=== PATIENT | female | born 1955 | race Caucasian/White ===

== ENCOUNTER 2017-04-29 18:02 | Observation (INO) | payer OTHER ==
[~2017-04-29] VITALS: Ht 162.6 cm; Wt 99.8 kg
[2017-04-29] VITALS (7 sets, daily range): BP systolic 120–183; BP diastolic 68–93; PULSE 78–199; RESP 18–20; TEMP 97.4–98.7; O2SAT 96–98
[2017-04-29] MEDS ORDERED: SODIUM CHLORIDE 0.9% FLUSH 10 ML FLUSH IVF PRN (18:15)
[2017-04-29] MEDS ORDERED: DILTIAZEM HCL 25 MG/5 ML VIAL IV ONE (18:15)
[2017-04-29] MEDS ORDERED: ASPIRIN 325 MG TAB PO ONE (18:15)
--- NOTE | 2017-04-29 18:15 | PD ---
HPI Chief Complaint: Cardiac Complaint Time Seen by Provider: 18:06 Travel History International Travel<30 days: No Contact w/Intl Traveler<30days: No Traveled to known affect area: No History of Present Illness HPI The patient was seen and examined in the presence of the nurse. This patient arrives critically ill with heart rate of 200. She developed a low central chest pressure and rapid heartbeat one hour ago. She called paramedics who found her in SVT and gave her 6 of adenosine followed by 12 mg of adenosine. Neither worked for converting. She arrives in SVT at 200. Systolic blood pressure 120. She is alert and talking. She has no history of cardiac arrhythmia or cardiac disease per her report. Symptoms are severe. He feels lightheaded and dizzy. No alleviating factors. No exacerbating factors. PFSH Social History Alcohol Use: No Tobacco Use: No Substance Use: No Allergies-Medications (Allergen,Severity, Reaction): Coded Allergies: codeine (Verified Allergy, Severe, Itching, 04/29/17) morphine (Verified Allergy, Severe, Itching, 04/29/17) Reported Meds & Prescriptions Reported Meds & Active Scripts Active Reported Ambien (Zolpidem Tartrate) 10 Mg Tab 10 Mg PO HS PRN Fentanyl Patch 72 HR (Fentanyl) 75 Mcg/Hr Patch 75 Mcg T-DERMAL Q72H Remove old patch when new one placed. Fetzima ER (Levomilnacipran ER) 120 Mg Caper 120 Mg PO DAILY Lovastatin 40 Mg Tab 40 Mg PO DAILY Clonazepam 1 Mg Tab 1 Mg PO DAILY Levothyroxine (Levothyroxine Sodium) 50 Mcg Tab 50 Mcg PO DAILY Lamotrigine 100 Mg Tab 100 Mg PO DAILY Lamotrigine 100 Mg Tab 100 Mg PO DAILY Linzess (Linaclotide) 145 Mcg Cap 145 Mcg PO DAILY Verapamil (Verapamil HCl) 120 Mg Tab 240 Mg PO DAILY Ranitidine (Ranitidine HCl) 150 Mg Tab 150 Mg PO DAILY Review of Systems General / Constitutional: No: Fever Eyes: No: Visual changes HENT: Positive: Lightheadedness, No: Headaches Cardiovascular: Positive: Chest Pain or Discomfort, Palpitations, Tachycardia Respiratory: No: Shortness of Breath Gastrointestinal: No: Abdominal Pain Genitourinary: No: Dysuria Musculoskeletal: No: Pain Skin: No Rash Neurologic: Positive: Weakness, Dizziness Psychiatric: No: Depression Endocrine: No: Polydipsia Hematologic/Lymphatic: No: Easy Bruising Physical Exam Narrative GENERAL: Well-nourished, well-developed patient with chest pressure and lightheadedness and rapid heartbeat . SKIN: Focused skin assessment reveals no rash and nodules. Skin is Warm and dry. HEAD: Atraumatic. Normocephalic. EYES: Pupils equal and round. No scleral icterus. No injection or drainage. ENT: No nasal bleeding or discharge. Mucous membranes pink and moist. NECK: Trachea midline. No JVD. CARDIOVASCULAR: Regular rate and rhythm. No murmur appreciated. Heart rate is 200 RESPIRATORY: No accessory muscle use. Clear to auscultation. Breath sounds equal bilaterally. GASTROINTESTINAL: Abdomen soft, non-tender, nondistended. Hepatic and splenic margins not palpable. MUSCULOSKELETAL: No obvious deformities. No clubbing. No cyanosis. No edema. NEUROLOGICAL: Awake and alert. No obvious cranial nerve deficits. Motor grossly within normal limits. Normal speech. PSYCHIATRIC: Anxious mood and affect; insight and judgment normal. Data Data Last Documented VS Vital Signs Date Time Temp Pulse Resp B/P (MAP) Pulse Ox O2 Delivery O2 Flow Rate FiO2 04/29/17 18:47 Room Air 04/29/17 18:47 20 96 2.00 04/29/17 18:40 98.7 199 120/68 (85) Orders Orders Diltiazem Inj (Cardizem Inj) (04/29/17 18:15) Electrocardiogram (04/29/17 18:06) Basic Metabolic Panel (Bmp) (04/29/17 18:06) Ckmb (Isoenzyme) Profile (04/29/17 18:06) Complete Blood Count With Diff (04/29/17 18:06) Magnesium (Mg) (04/29/17 18:06) Prothrombin Time / Inr (Pt) (04/29/17 18:06) Act Partial Throm Time (Ptt) (04/29/17 18:06) Troponin I (04/29/17 18:06) Chest, Single Ap (04/29/17 18:06) Ecg Monitoring (04/29/17 18:06) Iv Access Insert/Monitor (04/29/17 18:06) Oximetry (04/29/17 18:06) Oxygen Administration (04/29/17 18:06) Sodium Chloride 0.9% Flush (Ns Flush) (04/29/17 18:15) Aspirin (Aspirin) (04/29/17 18:15) Admit Order (Ed Use Only) (04/29/17 19:22) Labs Laboratory Tests Test 04/29/17 18:00 White Blood Count 10.6 TH/MM3 Red Blood Count 4.67 MIL/MM3 Hemoglobin 13.3 GM/DL Hematocrit 41.0 % Mean Corpuscular Volume 87.8 FL Mean Corpuscular Hemoglobin 28.5 PG Mean Corpuscular Hemoglobin Concent 32.4 % Red Cell Distribution Width 12.3 % Platelet Count 425 TH/MM3 Mean Platelet Volume 8.0 FL Neutrophils (%) (Auto) 58.3 % Lymphocytes (%) (Auto) 32.0 % Monocytes (%) (Auto) 6.6 % Eosinophils (%) (Auto) 1.7 % Basophils (%) (Auto) 1.4 % Neutrophils # (Auto) 6.2 TH/MM3 Lymphocytes # (Auto) 3.4 TH/MM3 Monocytes # (Auto) 0.7 TH/MM3 Eosinophils # (Auto) 0.2 TH/MM3 Basophils # (Auto) 0.1 TH/MM3 CBC Comment DIFF FINAL Differential Comment Prothrombin Time 10.0 SEC Prothromb Time International Ratio 1.0 RATIO Activated Partial Thromboplast Time 27.5 SEC Blood Urea Nitrogen 16 MG/DL Creatinine 0.91 MG/DL Random Glucose 136 MG/DL Calcium Level 9.3 MG/DL Magnesium Level 2.0 MG/DL Sodium Level 137 MEQ/L Potassium Level 4.0 MEQ/L Chloride Level 101 MEQ/L Carbon Dioxide Level 29.2 MEQ/L Anion Gap 7 MEQ/L Estimat Glomerular Filtration Rate 63 ML/MIN Total Creatine Kinase 92 U/L Troponin I 0.02 NG/ML MDM Medical Decision Making Medical Screen Exam Complete: Yes Emergency Medical Condition: Yes Medical Record Reviewed: Yes Differential Diagnosis SVT, A. fib with RVR, ventricular tachycardia Narrative Course I have reviewed the patient's electronic medical record. This patient arrives critically ill. She has failed adenosine twice I placed on cardiac monitoring and reviewed her EKG which shows SVT at 200. She has a narrow complex regular tachycardia She is symptomatic but rather than jumping right to synchronized cardioversion I gave her 20 g IV Cardizem bolus Extended cardiac monitoring revealed SVT which was very rapid Within she converted to a sinus rhythm at 90 after Cardizem I reviewed his second EKG which shows sinus rhythm at [address] elevation or ectopy IV placed I reviewed the chest x-ray which is normal Extended cardiac monitoring at this time shows 90 sinus rhythm CBC is normal Metabolic profile is normal CK is normal Troponin is normal Coagulation studies are normal Multiple bedside checks were done. At this Moment she is currently chest pain-free and in a sinus rhythm. I reviewed with the hospitalist who will admit to telemetry Critical Care Narrative Aggregate critical care time was 38 minutes. Time to perform other separately billable procedures was not included in the critical care time. My time did not include minutes spent treating any other patients simultaneously or on activities that did not directly contribute to the patient's treatment. The services I provided to this patient were to treat and/or prevent clinically significant deterioration that could result in: Cardiopulmonary arrest, cardiogenic shock, myocardial injury I provided critical care services requiring my management, as noted below: Chart data review, documentation time, medication orders and management, vital sign assessments/reviewing monitor data, ordering and reviewing lab tests, ordering and interpreting/reviewing x-rays and diagnostic studies, care of the patient and discussion of the patient with the admitting physicians. Diagnosis Primary Impression: Chest pain Qualified Codes: R07.2 - Precordial pain Additional Impression: SVT (supraventricular tachycardia) Admitting Information Admitting Physician Requests: Siva Oreilly MD Apr 29, 2017 18:15
--- NOTE | 2017-04-29 18:24 | RADRPT ---
EXAM DATE/TIME: 04/29/2017 18:13 [facility] COMPARISON: No previous studies available for comparison. INDICATIONS : Irregular heart rate starting today MEDICAL HISTORY : None. SURGICAL HISTORY : None. ENCOUNTER: Initial ACUITY: 1 day PAIN SCORE: 0/10 LOCATION: Bilateral chest FINDINGS: A single view of the chest demonstrates the lungs to be symmetrically aerated without evidence of mas s, infiltrate or effusion. The cardiomediastinal contours are unremarkable. Osseous structures are intact. CONCLUSION: No acute disease. Hank Hunter MD on April 29, 2017 at 18:22 Board Certified Radiologist. This report was verified electronically.
[2017-04-29 18:30] LABS: AUTOMATED NEUTROPHIL # 6.2 TH/MM3 (1.8-7.7); BASOPHIL # 0.1 TH/MM3 (0-0.2); BASOPHIL % 1.4 % (0.0-2.0); EOSINOPHIL # 0.2 TH/MM3 (0-0.4); EOSINOPHIL % 1.7 % (0.0-4.0); HEMOGLOBIN 13.3 GM/DL (11.6-15.3); LYMPHOCYTE # 3.4 TH/MM3 (1.0-4.8); MEAN CELL VOLUME 87.8 FL (80.0-100.0); MEAN CORPUSCULAR HEMOGLOBIN 28.5 PG (27.0-34.0); MEAN CORPUSCULAR HGB CONC 32.4 % (32.0-36.0); MONO % 6.6 % (0.0-8.0); MONOCYTE # 0.7 TH/MM3 (0-0.9); NEUT % 58.3 % (16.0-70.0); PLATELET COUNT 425 TH/MM3 (150-450); RED BLOOD COUNT 4.67 MIL/MM3 (4.00-5.30); RED CELL DISTRIBUTION WIDTH 12.3 % (11.6-17.2); WHITE BLOOD COUNT 10.6 TH/MM3 (4.0-11.0)
[2017-04-29 18:41] LABS: CALCIUM 9.3 MG/DL (8.5-10.1)
[2017-04-29 18:42] LABS: BICARBONATE 29.2 MEQ/L (21.0-32.0)
[2017-04-29 18:45] LABS: CREATININE 0.91 MG/DL (0.50-1.00)
[2017-04-29 18:50] LABS: TROPONIN I 0.02 NG/ML (0.02-0.05)
[2017-04-29] MEDS ORDERED: VERA120T3 PO (19:01)
[2017-04-29] MEDS ORDERED: LAMO100T PO ×2 (19:01)
[2017-04-29] MEDS ORDERED: LINA145C PO (19:01)
[2017-04-29] MEDS ORDERED: CLON1TAB PO (19:01)
[2017-04-29] MEDS ORDERED: LEVO1CAP PO (19:01)
[2017-04-29] MEDS ORDERED: FENT75DI T-DERMAL (19:01)
[2017-04-29] MEDS ORDERED: LEVO50TA4 PO (19:01)
[2017-04-29] MEDS ORDERED: LOVA40TA PO (19:01)
[2017-04-29] MEDS ORDERED: RANI150T PO (19:01)
[2017-04-29] MEDS ORDERED: AMBI10TA PO (19:24)
[2017-04-29] MEDS ORDERED: SODIUM CHLORIDE 0.9% FLUSH 10 ML FLUSH IV FLUSH PRN (19:30)
[2017-04-29] MEDS ORDERED: NITROGLYCERIN 0.4 MG SL 25 TABS/BTL SL PRN (19:30)
[2017-04-29] MEDS: HEPARIN SODIUM - SQ 10,000 UNITS/ML VIAL SQ SCH (22:26)
[2017-04-29] MEDS: SODIUM CHLORIDE 0.9% FLUSH 10 ML FLUSH IV FLUSH SCH (22:26)
[2017-04-29] MEDS ORDERED: VERAPAMIL HCL 240 MG SUSTAINED RELEASE TAB PO ONE (23:15)
[2017-04-29] MEDS ORDERED: lamoTRIgine 100 MG TAB PO ONE (23:15)
[2017-04-29] MEDS: ZOLPIDEM TARTRATE 10 MG TAB PO PRN (23:31)
[2017-04-29] MEDS ORDERED: HYDR-3583 PO (23:35)
[2017-04-30] VITALS (8 sets, daily range): BP systolic 132–184; BP diastolic 74–88; PULSE 69–89; RESP 18–20; TEMP 96.5–98; O2SAT 92–97
[2017-04-30 00:48] LABS: TROPONIN I 0.21 NG/ML (0.02-0.05)
[2017-04-30] MEDS: HEPARIN SODIUM - SQ 10,000 UNITS/ML VIAL SQ SCH ×3 (05:54→22:08)
[2017-04-30] MEDS: LEVOTHYROXINE SODIUM 50 MCG TAB PO SCH (05:54)
[2017-04-30 07:02] LABS: AUTOMATED NEUTROPHIL # 4.1 TH/MM3 (1.8-7.7); BASOPHIL # 0.1 TH/MM3 (0-0.2); BASOPHIL % 1.4 % (0.0-2.0); EOSINOPHIL # 0.1 TH/MM3 (0-0.4); EOSINOPHIL % 1.9 % (0.0-4.0); HEMATOCRIT 41.5 % (35.0-46.0); HEMOGLOBIN 13.8 GM/DL (11.6-15.3); LYMPHOCYTE # 2.8 TH/MM3 (1.0-4.8); MEAN CELL VOLUME 86.7 FL (80.0-100.0); MEAN CORPUSCULAR HEMOGLOBIN 28.7 PG (27.0-34.0); MEAN CORPUSCULAR HGB CONC 33.1 % (32.0-36.0); MONO % 6.7 % (0.0-8.0); MONOCYTE # 0.5 TH/MM3 (0-0.9); PLATELET COUNT 342 TH/MM3 (150-450); RED BLOOD COUNT 4.79 MIL/MM3 (4.00-5.30); RED CELL DISTRIBUTION WIDTH 12.6 % (11.6-17.2); WHITE BLOOD COUNT 7.6 TH/MM3 (4.0-11.0)
[2017-04-30 07:29] LABS: BICARBONATE 27.6 MEQ/L (21.0-32.0)
[2017-04-30 07:33] LABS: CREATININE 0.71 MG/DL (0.50-1.00)
[2017-04-30 07:37] LABS: TROPONIN I 0.25 NG/ML (0.02-0.05)
[2017-04-30] MEDS ORDERED: VERAPAMIL HCL 120 MG TAB PO SCH (09:00)
[2017-04-30] MEDS ORDERED: LINACLOTIDE 145 MCG PO SCH (09:00)
[2017-04-30] MEDS ORDERED: PNEUMOCOCCAL POLYVALENT INJ 25 MCG/0.5 ML SYR IM ONE (09:00)
--- NOTE | 2017-04-30 09:51 | HHI.HP ---
[facility] Primary Care Physician Mitchell Rendon MD Admission Diagnosis Chest pain, SVT Diagnoses: (1) Chest pain Diagnosis: Principal (2) SVT (supraventricular tachycardia) Diagnosis: Principal Chief Complaint: Chest pain and palpitations Travel History International Travel<30 Days: No Contact w/Intl Traveler <30 Da: No Traveled to Known Affected Are: No History of Present Illness This is a pleasant 61-year-old female patient with a known medical history of chronic back pain presented to the ED with complaints of racing heart rate and chest pain. Patient states that she had a relatively active day yesterday, states that after her busy day she was resting at home and developed a chest pressor and rapid heart rate. She then called the paramedics who found her in SVT, was given one dose of adenosine followed by a another dose. There is reports that patient did not convert therefore was brought into the ED. Patient was given another dose of adenosine when which her heart rate had stabilized. She does admit to associated lightheadedness of dizziness. Patient does admit that on Thursday she was feeling weak and shaky and overall "not herself"and had rested for a couple days. She denies any recent fever or chills or abdominal pain, nausea or vomiting or diarrhea. Patient states that she saw Dr. Corona roughly one year ago and underwent a stress test and echocardiogram was done which was all reportedly negative. Patient's PCP is Dr. Rendon. Patient states that she has these racing heartbeat sensations quite frequently and they occur most the time when she is bearing down using the bathroom. Patient is on pain medications for chronic back pain for which she subsequently has complaints of chronic constipation. Patient states her last bowel movement was on Thursday. Denies any hematochezia. Patient states that she did follow with the teaching specialists, and does not remember his name , last year which had recommended an upper EGD that patient states she is unable to do to monetary reasons. Patient does state she underwent a colonoscopy over ten years ago which was reportedly negative. She takes MiraLAX at home for constipation. Currently follows with the pain management doctor. Review of Systems Constitutional: COMPLAINS OF: Fatigue, DENIES: Fever, Chills Eyes: DENIES: Blurred vision, Diplopia Respiratory: DENIES: Cough, Shortness of breath Cardiovascular: COMPLAINS OF: Chest pain, Palpitations Gastrointestinal: COMPLAINS OF: Abdominal pain, Constipation, DENIES: Black stools, Bloody stools, Diarrhea, Nausea, Vomiting Musculoskeletal: DENIES: Joint pain Integumentary: DENIES: Abnormal pigmentation Hematologic/lymphatic: DENIES: Bruising Immunologic/allergic: DENIES: Eczema Neurologic: DENIES: Abnormal gait Psychiatric: DENIES: Anxiety Except as stated in HPI: all other systems reviewed are Neg Past Family Social History Past Medical History Chronic back pain on narcotics with frequent constipation. Past Surgical History Denies any previous surgeries. Reported Medications Active Reported Hydrocodone-Acetaminophen 10-325 mg Tab 1 Tab PO Q8HR PRN Ambien (Zolpidem Tartrate) 10 Mg Tab 10 Mg PO HS PRN Fentanyl Patch 72 HR (Fentanyl) 75 Mcg/Hr Patch 75 Mcg T-DERMAL Q72H Remove old patch when new one placed. Fetzima ER (Levomilnacipran ER) 120 Mg Caper 120 Mg PO DAILY Lovastatin 40 Mg Tab 40 Mg PO DAILY Clonazepam 1 Mg Tab 1 Mg PO DAILY Levothyroxine (Levothyroxine Sodium) 50 Mcg Tab 50 Mcg PO DAILY Lamotrigine 100 Mg Tab 200 Mg PO DAILY Lamotrigine 100 Mg Tab 100 Mg PO DAILY Linzess (Linaclotide) 145 Mcg Cap 145 Mcg PO DAILY Verapamil (Verapamil HCl) 120 Mg Tab 240 Mg PO DAILY Ranitidine (Ranitidine HCl) 150 Mg Tab 150 Mg PO DAILY Allergies: Coded Allergies: codeine (Verified Allergy, Severe, Itching, 04/29/17) morphine (Verified Allergy, Severe, Itching, 04/29/17) Active Ordered Medications Current Medications Medications (Trade) Dose Ordered Sig/Larry Route Start Time Stop Time Status Last Admin (NS Flush) 2 ml BID IV FLUSH 04/29/17 21:00 04/30/17 10:17 (NS Flush) 2 ml UNSCH PRN IV FLUSH 04/29/17 19:30 (Aspirin) 325 mg DAILY PO 04/30/17 09:00 04/30/17 10:15 (Nitrostat Sl) 0.4 mg Q5M PRN SL 04/29/17 19:30 (Heparin Inj) 5,000 units Q8H SQ 04/29/17 21:00 04/30/17 11:58 (KlonoPIN) 1 mg DAILY PO 04/30/17 09:00 04/30/17 10:14 (LaMICtal) 200 mg DAILY PO 04/30/17 09:00 04/30/17 10:15 (Synthroid) 50 mcg DAILY@0600 PO 04/30/17 06:00 04/30/17 05:54 (Pravachol) 40 mg DAILY PO 04/30/17 09:00 04/30/17 10:15 (Ambien) 10 mg HS PRN PO 04/29/17 23:00 04/29/17 23:31 Patient Own Medication PT OWN MED: LINACLOTIDE 145 MCG ... DAILY PO 04/30/17 09:00 Future Hold (Pepcid) 20 mg DAILY PO 04/30/17 09:00 04/30/17 10:15 (Isoptin Sr) 240 mg DAILY PO 04/30/17 09:00 04/30/17 10:15 (Arabella-Colace) 1 tab BID PO 04/30/17 10:00 04/30/17 10:19 (Milk Of Magnesia Liq) 30 ml Q12H PRN PO 04/30/17 10:00 (Senokot) 17.2 mg Q12H PRN PO 04/30/17 10:00 (Dulcolax Supp) 10 mg DAILY PRN RECTAL 04/30/17 10:00 (Lactulose Liq) 30 ml DAILY PRN PO 04/30/17 10:00 (Relistor Inj) 12 mg DAILY SQ 04/30/17 12:00 04/30/17 11:58 Patient Own Medication PT OWN MED: FETZIMA... DAILY PO 04/30/17 14:00 Family History Paternal medical history significant for diabetes, or vascular disease with history of CABG, UT and CHF. Social History Patient does state she smokes roughly a pack of cigarettes per week for the last forty-five years. Denies any alcohol use or illicit use. Physical Exam Vital Signs Vital Signs Date Time Temp Pulse Resp B/P (MAP) Pulse Ox O2 Delivery O2 Flow Rate FiO2 04/30/17 07:50 97.6 69 20 138/74 (95) 95 04/30/17 04:00 97.5 74 18 175/88 (117) 95 04/30/17 00:00 97.1 82 20 184/86 (118) 96 04/29/17 22:15 04/29/17 21:57 78 04/29/17 21:45 97.4 88 20 183/93 (123) 96 04/29/17 21:08 91 18 140/75 (96) 98 Room Air 04/29/17 19:35 107 18 140/75 (96) 97 Room Air 04/29/17 18:47 Room Air 04/29/17 18:47 20 96 Nasal Cannula 2.00 04/29/17 18:47 96 Nasal Cannula 2.00 04/29/17 18:40 98.7 199 20 120/68 (85) 96 04/29/17 18:02 98.7 199 18 120/68 (85) 96 Physical Exam GENERAL: Well-nourished, well-developed patient in NAD. SKIN: Warm and dry. No rash. HEAD: Normocephalic. Atraumatic. EYES: Pupils equal and round. No scleral icterus. No injection or drainage. ENT: No nasal bleeding or discharge. Mucous membranes pink and moist. NECK: Supple. Trachea midline. CARDIOVASCULAR: Regular rate and rhythm. S1, S2 noted. No murmur appreciated. No reproducible chest pain to palpation. RESPIRATORY: No accessory muscle use. Clear to auscultation. Breath sounds equal bilaterally. GASTROINTESTINAL: Abdomen soft, mildly distended, mildly tender to palpation. Normoactive bowel sounds x4. MUSCULOSKELETAL: No obvious deformities. Extremities without clubbing, cyanosis , or edema. NEUROLOGICAL: Awake and alert. No obvious cranial nerve deficits. Motor grossly within normal limits. 5/5 muscle strength in bilateral upper and lower extremities. Normal speech. PSYCHIATRIC: Appropriate mood and affect; insight and judgment normal. Laboratory Laboratory Tests Test 04/29/17 18:00 04/30/17 00:15 04/30/17 05:05 White Blood Count 10.6 7.6 Red Blood Count 4.67 4.79 Hemoglobin 13.3 13.8 Hematocrit 41.0 41.5 Mean Corpuscular Volume 87.8 86.7 Mean Corpuscular Hemoglobin 28.5 28.7 Mean Corpuscular Hemoglobin Concent 32.4 33.1 Red Cell Distribution Width 12.3 12.6 Platelet Count 425 342 Mean Platelet Volume 8.0 8.0 Neutrophils (%) (Auto) 58.3 53.0 Lymphocytes (%) (Auto) 32.0 37.0 Monocytes (%) (Auto) 6.6 6.7 Eosinophils (%) (Auto) 1.7 1.9 Basophils (%) (Auto) 1.4 1.4 Neutrophils # (Auto) 6.2 4.1 Lymphocytes # (Auto) 3.4 2.8 Monocytes # (Auto) 0.7 0.5 Eosinophils # (Auto) 0.2 0.1 Basophils # (Auto) 0.1 0.1 CBC Comment DIFF FINAL DIFF FINAL Differential Comment Prothrombin Time 10.0 Prothromb Time International Ratio 1.0 Activated Partial Thromboplast Time 27.5 Blood Urea Nitrogen 16 12 Creatinine 0.91 0.71 Random Glucose 136 93 Calcium Level 9.3 10.0 Magnesium Level 2.0 Sodium Level 137 138 Potassium Level 4.0 3.8 Chloride Level 101 100 Carbon Dioxide Level 29.2 27.6 Anion Gap 7 10 Estimat Glomerular Filtration Rate 63 84 Total Creatine Kinase 92 77 76 Troponin I 0.02 0.21 0.25 Result Diagram: 04/30/17 0505 04/30/17 0505 Imaging Last Impressions Chest X-Ray 04/29/17 1806 Signed Impressions: Service Date/Time: Saturday, April 29, 2017 18:13 - CONCLUSION: No acute disease. Hank Hunter MD Septic Shock Reassessment Septic shock perfusion: reassessment completed Caprini VTE Risk Assessment Caprini VTE Risk Assessment: Mod/High Risk (score >= 2) Caprini Risk Assessment Model Point Value = 1 Point Value = 2 Point Value = 3 Point Value = 5 Age 41-60 Minor surgery BMI > 25 kg/m2 Swollen legs Varicose veins or History of unexplained or recurrent spontaneous Oral contraceptives or hormone replacement Sepsis (< 1 month) Serious lung disease, including pneumonia (< 1 month) Abnormal pulmonary function Acute myocardial infarction Congestive heart failure (< 1 month) History of inflammatory bowel disease Medical patient at bed rest Age 61-74 Arthroscopic surgery Major open surgery (> 45 min) Laparoscopic surgery (> 45 min) Malignancy Confined to bed (> 72 hours) Immobilizing plaster cast Central venous access Age >= 75 History of VTE Family history of VTE Factor V Leiden Prothrombin [id number] Lupus anticoagulant Anticardiolipin antibodies Elevated serum homocysteine Heparin-induced thrombocytopenia Other congenital or acquired thrombophilia Stroke (< 1 month) Elective arthroplasty Hip, pelvis, or leg fracture Acute spinal cord injury (< 1 month) Prophylaxis Regimen Total Risk Factor Score Risk Level Prophylaxis Regimen 0-1 Low Early ambulation 2 Moderate Order ONE of the following: *Sequential Compression Device (SCD) *Heparin 5000 units SQ BID 3-4 Higher Order ONE of the following medications: *Heparin 5000 units SQ TID *Enoxaparin/Lovenox 40 mg SQ daily (WT < 150 kg, CrCl > 30 mL/min) *Enoxaparin/Lovenox 30 mg SQ daily (WT < 150 kg, CrCl > 10-29 mL/min) *Enoxaparin/Lovenox 30 mg SQ BID (WT < 150 kg, CrCl > 30 mL/min) AND/OR *Sequential Compression Device (SCD) 5 or more Highest Order ONE of the following medications: *Heparin 5000 units SQ TID (Preferred with Epidurals) *Enoxaparin/Lovenox 40 mg SQ daily (WT < 150 kg, CrCl > 30 mL/min) *Enoxaparin/Lovenox 30 mg SQ daily (WT < 150 kg, CrCl > 10-29 mL/min) *Enoxaparin/Lovenox 30 mg SQ BID (WT < 150 kg, CrCl > 30 mL/min) AND *Sequential Compression Device (SCD) Assessment and Plan Assessment and Plan This is a pleasant 61-year-old female patient with a known medical history of chronic back pain presented to the ED with complaints of racing heart rate and chest pain. Atypical chest pain suspect secondary to SVT. Patient presented with heart rate over two hundred. Was given adenosine 3. Serial troponins ordered, 0.02, 0.21, 0.25. Flat but mildly elevated, likely secondary to SVT. Spoke to patient's railroad auditor Dr. Corona, updated about occurrences and patient status, who recommends follow-up in the outpatient setting for episode of SVT. CBC and BMP reviewed which were essentially unremarkable. EKG reviewed showing normal sinus rhythm with controlled heart rate, no ST changes to indicate any ischemia. Chest x-ray reviewed showing no acute disease. Chest pain has not resolved. Denies any palpitations. Continued on cardiac telemetry, no cardiac arrhythmias noted. Abdominal pain suspect secondary to chronic constipation secondary to chronic narcotics Will obtain abdominal CT, results pending. Follow. Placed on bowel regimen including with a store. Monitor response. Hypertension, chronic: BP stable. Will continue home medications. Continue to monitor BP trends. Hyperlipidemia, chronic: Continue home medication. Hypothyroidism, chronic: Continue levothyroxine. DVT prophylaxis: SCDs. No CT abdomen/pelvis reviewed showing uncomplicated colonic diverticulitis. Showing a small umbilical hernia containing a loop of small intestine. Patient is afebrile. Mild pain, likely secondary to her chronic back pain and chronic constipation. Patient has been given a GI cocktail, multiple laxatives. Patient encouraged to try by mouth intake, will assess how she tolerates. Will resume home pain medications. Possible discharge later this afternoon depending on tolerating by mouth diet. Will continue to follow. Problem Qualifiers (1) Chest pain: Qualified Codes: R07.2 - Precordial pain Juany Corey Apr 30, 2017 09:51
[2017-04-30] MEDS ORDERED: SENNOSIDES 8.6 MG TAB PO PRN (10:00)
[2017-04-30] MEDS ORDERED: MAGNESIUM HYDROXIDE SUSP 30 ML CUP PO PRN (10:00)
[2017-04-30] MEDS ORDERED: BISACODYL 10 MG SUPP RECTAL PRN (10:00)
[2017-04-30] MEDS ORDERED: LACTULOSE SYRUP 20 GM/30 ML CUP PO PRN (10:00)
[2017-04-30] MEDS: clonazePAM 1 MG TAB PO SCH (10:14)
[2017-04-30] MEDS: ASPIRIN 325 MG TAB PO SCH (10:15)
[2017-04-30] MEDS: PRAVASTATIN SOD 40 MG TAB PO SCH (10:15)
[2017-04-30] MEDS: FAMOTIDINE 20 MG TAB PO SCH (10:15)
[2017-04-30] MEDS: lamoTRIgine 100 MG TAB PO SCH (10:15)
[2017-04-30] MEDS: VERAPAMIL HCL 240 MG SUSTAINED RELEASE TAB PO SCH (10:15)
[2017-04-30] MEDS: SODIUM CHLORIDE 0.9% FLUSH 10 ML FLUSH IV FLUSH SCH ×2 (10:17→22:08)
[2017-04-30] MEDS: DOCUSATE SODIUM 50 MG/SENNA 8.6 MG TAB PO SCH ×2 (10:19→22:08)
[2017-04-30] MEDS ORDERED: DIATRIZOATE MEGLUM/DIATRIZOATE SOD 9 ML CUP PO ONE (10:45)
[2017-04-30 10:52] LABS: ALBUMIN 3.9 GM/DL (3.4-5.0)
[2017-04-30 10:54] LABS: DIRECT BILIRUBIN ADULT 0.1 MG/DL (0.0-0.2)
[2017-04-30 10:56] LABS: INDIRECT BILIRUBIN 0.1 MG/DL (0.0-0.8); TOTAL BILIRUBIN ADULT 0.2 MG/DL (0.2-1.0)
[2017-04-30 10:57] LABS: TOTAL PROTEIN 7.6 GM/DL (6.4-8.2)
[2017-04-30] MEDS: METHYLNALTREXONE BROMIDE 12 MG/0.6 ML VIAL SQ SCH (11:58)
[2017-04-30] MEDS ORDERED: IOHEXOL 350 MG/ML 10 ML VIAL (for RAD DIAG) IVCONTRAST ONE (13:45)
[2017-04-30] MEDS: FETZIMA 120 MG PO SCH (14:47)
--- NOTE | 2017-04-30 14:47 | RADRPT ---
EXAM DATE/TIME: 04/30/2017 13:37 [facility] COMPARISON: No previous studies available for comparison. INDICATIONS : Abdominal distention. IV CONTRAST: 85 cc Omnipaque 350 (iohexol) IV ORAL CONTRAST: Prescribed oral contrast ingested. RADIATION DOSE: 21.11 CTDIvol (mGy) MEDICAL HISTORY : Gastroesophageal reflux disease. Hypertension. SURGICAL HISTORY : Appendectomy. ENCOUNTER: Initial ACUITY: 1 day PAIN SCALE: 2/10 LOCATION: Abdomen. TECHNIQUE: Volumetric scanning of the abdomen and pelvis was performed. Using automated exposure control and ad justment of the mA and/or kV according to patient size, radiation dose was kept as low as reasonably achievable to obtain optimal diagnostic quality images. DICOM format image data is available electro nically for review and comparison. FINDINGS: LOWER LUNGS: Fibrotic scarring within the posterior aspects of the lower lobes. LIVER: Homogeneous density with a 12 mm cyst in the left lobe. There is no dilation of the biliary tree. Sta tus post cholecystectomy. SPLEEN: Normal size without lesion. PANCREAS: Within normal limits. KIDNEYS: Normal in size and shape. There is no mass, stone or hydronephrosis. ADRENAL GLANDS: Within normal limits. VASCULAR: There is no aortic aneurysm. BOWEL/MESENTERY: Uncomplicated colonic diverticulosis. The appendix is normal. No bowel obstruction or ileus is noted. ABDOMINAL WALL: Small umbilical hernia with loop of small intestine noted. RETROPERITONEUM: There is no lymphadenopathy. BLADDER: No wall thickening or mass. REPRODUCTIVE: Within normal limits. INGUINAL: There is no lymphadenopathy or hernia. MUSCULOSKELETAL: Mild degenerative changes and scoliosis of the thoracolumbar spine. CONCLUSION: 1. Uncomplicated colonic diverticulosis. 2. Small umbilical hernia containing a loop of small intestine. 3. 12 mm left lobe hepatic cyst. 4. Degenerative changes and scoliosis of the thoracolumbar spine. Ketan Gonzalez MD on April 30, 2017 at 14:39 Board Certified Radiologist. This report was verified electronically.
[2017-04-30] MEDS ORDERED: BISACODYL 10 MG SUPP RECTAL ONE (16:15)
[2017-04-30] MEDS ORDERED: ALUMINUM/MAGNESIUM/SIMETH 30 ML CUP PO ONE (16:15)
[2017-04-30] MEDS: ACETAMINOPHEN/HYDROcodone 325 MG/10 MG TAB PO PRN (16:49)
--- NOTE | 2017-04-30 18:20 | HHI.DCPOC ---
Discharge Care Plan Diagnosis: (1) Chest pain (2) SVT (supraventricular tachycardia) Additional Problems Chronic constipation Goals to Promote Your Health * To prevent worsening of your condition and complications * To maintain your health at the optimal level Directions to Meet Your Goals Take your medications as prescribed Follow your dietary instruction Follow activity as directed Keep your appointments as scheduled Take your immunizations and boosters as scheduled If your symptoms worsen call your PCP, if no PCP go to Urgent Care Center or Emergency Room Smoking is Dangerous to Your Health. Avoid second hand smoke Call the 24-hour hour crisis hotline for domestic abuse at Juany Corey Apr 30, 2017 18:20
[2017-04-30] MEDS ORDERED: PERI PO (18:29)
[2017-04-30] MEDS ORDERED: BISA10R RECTAL (18:29)
[2017-04-30] MEDS ORDERED: PROT40TA PO (18:29)
[2017-04-30] MEDS: ZOLPIDEM TARTRATE 10 MG TAB PO PRN (22:08)
[2017-04-30] MEDS ORDERED: ACETAMINOPHEN 325 MG TAB PO ONE (22:30)
[2017-05-01] VITALS: BP 157/77; PULSE 84; RESP 20; TEMP 96.5; O2SAT 93
[2017-05-01 04:00] VITALS: BP 156/93; PULSE 78; RESP 20; TEMP 97.8; O2SAT 95
[2017-05-01] MEDS: HEPARIN SODIUM - SQ 10,000 UNITS/ML VIAL SQ SCH (04:50)
[2017-05-01] MEDS: ACETAMINOPHEN/HYDROcodone 325 MG/10 MG TAB PO PRN (04:50)
[2017-05-01] MEDS: LEVOTHYROXINE SODIUM 50 MCG TAB PO SCH (04:50)
[2017-05-01 08:00] VITALS: BP 152/102; PULSE 83; PULSE 87; RESP 16; TEMP 97.7; O2SAT 93
[2017-05-01] MEDS: SODIUM CHLORIDE 0.9% FLUSH 10 ML FLUSH IV FLUSH SCH (09:00)
[2017-05-01] MEDS: ASPIRIN 325 MG TAB PO SCH (09:13)
[2017-05-01] MEDS: FETZIMA 120 MG PO SCH (09:13)
[2017-05-01] MEDS: lamoTRIgine 100 MG TAB PO SCH (09:14)
[2017-05-01] MEDS: FAMOTIDINE 20 MG TAB PO SCH (09:14)
[2017-05-01] MEDS: clonazePAM 1 MG TAB PO SCH (09:14)
[2017-05-01] MEDS: VERAPAMIL HCL 240 MG SUSTAINED RELEASE TAB PO SCH (09:14)
[2017-05-01] MEDS: DOCUSATE SODIUM 50 MG/SENNA 8.6 MG TAB PO SCH (09:14)
[2017-05-01] MEDS: PRAVASTATIN SOD 40 MG TAB PO SCH (09:14)
[2017-05-01] MEDS: METHYLNALTREXONE BROMIDE 12 MG/0.6 ML VIAL SQ SCH (09:17)
--- NOTE | 2017-05-01 09:46 | EKG ---
Date Performed: 04/29/2017 Time Performed: 17:58:23 PTAGE: 61 years EKG: SUPRAVENTRICULAR TACHYCARDIA NONSPECIFIC ST & T-WAVE ABNORMALITY ABNORMAL RHYTHM ECG INTERP RETATION BASED ON A DEFAULT AGE OF 40 YEARS NO PREVIOUS TRACING DOCTOR: Chadwick Hernández Interpretating Date/Time 05/01/2017 09:45:16
--- NOTE | 2017-05-01 09:50 | EKG ---
Date Performed: 04/29/2017 Time Performed: 18:09:09 PTAGE: 61 years EKG: Sinus rhythm WITH SHORT ND INTERVAL BORDERLINE ECG Compared to PREVIOUS TRACING , sinus rhythm has replaced supraventricular tachycardia. ST changes are new. PREVIOUS TRACIN04/29/2017 17.58 DOCTOR: Chadwick Hernández Interpretating Date/Time 05/01/2017 09:48:10
--- NOTE | 2017-05-01 09:52 | EKG ---
Date Performed: 04/30/2017 Time Performed: 05:17:05 PTAGE: 61 years EKG: Sinus rhythm NORMAL ECG Since PREVIOUS TRACING , no significant change noted PREVIOUS TRACIN04/29/2017 23.44 DOCTOR: Chadwick Hernández Interpretating Date/Time 05/01/2017 09:50:15
--- NOTE | 2017-05-01 09:52 | EKG ---
Date Performed: 04/29/2017 Time Performed: 23:44:10 PTAGE: 61 years EKG: Sinus rhythm WITH MARKED SINUS ARRHYTHMIA BORDERLINE ECG Since PREVIOUS TRACING , no significant change noted PREVIOUS TRACIN04/29/2017 18.09 DOCTOR: Chadwick Hernández Interpretating Date/Time 05/01/2017 09:50:06
== END 2017-05-01 10:12 | disposition home or self-care (01) ==
LOC: PHED 18:02 → PHEDA 19:23 → PH3A 21:40
PROVIDERS: ADMIT Hospitalist; ATTEND Hospitalist
DX: R07.89 Other chest pain (principal); R07.2 Precordial pain; I47.1 Supraventricular tachycardia; R10.9 Unspecified abdominal pain; K59.03 Drug induced constipation; T40.605A Adverse effect of unspecified narcotics, initial encounter; K42.9 Umbilical hernia without obstruction or gangrene; G89.29 Other chronic pain; R42 Dizziness and giddiness; R53.1 Weakness; R14.0 Abdominal distension (gaseous); K21.9 Gastro-esophageal reflux disease without esophagitis; K57.30 Diverticulosis of large intestine without perforation or abscess without bleeding; K76.89 Other specified diseases of liver; M41.85 Other forms of scoliosis, thoracolumbar region; I10 Essential (primary) hypertension; E78.5 Hyperlipidemia, unspecified; E03.9 Hypothyroidism, unspecified; F17.210 Nicotine dependence, cigarettes, uncomplicated; Z79.899 Other long term (current) drug therapy; Z23 Encounter for immunization
CPT/HCPCS: 71045; 74177; 80048; 80076; 82550; 83735; 84484; 85025; 85610; 85730; 90732; 93005; 96372; 96374; 99291; G0009; G0378; J1644; J2212; Q9963; Q9967; 90471